=== PATIENT | male | born 1980 | race Asian ===

== ENCOUNTER 2019-04-25 23:47 | Emergency (ER) | END 2019-04-26 01:18 | disposition left against medical advice (07) | DX: S01.551A Open bite of lip, initial encounter (principal); S01.85XA Open bite of other part of head, initial encounter; W54.0XXA Bitten by dog, initial encounter; Y93.89 Activity, other specified; Y92.89 Other specified places as the place of occurrence of the external cause; Y99.8 Other external cause status | CPT/HCPCS: 90471; 90715; 96372; 99283; J0696 ==